=== PATIENT | male | born 1955 | race Two or more races ===

== ENCOUNTER 2023-06-28 00:23 | Emergency (ER) | payer OTHER ==
[~2023-06-28] VITALS: Ht 175.3 cm; Wt 112.9 kg
[2023-06-28] MEDS ORDERED: ATORVASTATIN CA10 MG PO (00:31)
[2023-06-28] MEDS ORDERED: COZAAR25 MG PO (00:31)
[2023-06-28] MEDS ORDERED: PENTOXIFYLLINE (00:32)
[2023-06-28 01:40] LABS: HEMATOCRIT 40.9 % (39.0-48.0); HEMOGLOBIN 13.6 g/dL (13-16.00); MEAN CELL VOLUME 94.5 fL (80.0-100.00); MEAN CORPUSCULAR HEMOGLOBIN 31.5 pg (27.00-32.0); MEAN CORPUSCULAR HGB CONC 33.3 g/dl (32.0-36.0); PLATELET COUNT 225 K/uL (150-450); RED BLOOD COUNT 4.33 M/uL (4.00-6.00); RED CELL DISTRIBUTION WIDTH 13.2 % (11.5-14.5)
[2023-06-28 01:50] LABS: PH,URINE 6.5 (5.0-8.0); URINE APPEARANCE Clear; URINE BILIRRUBIN Negative (NEGATIVE); URINE BLOOD Negative; URINE COLOR Yellow; URINE GLUCOSE Negative (NEGATIVE); URINE LEUKOCYTE Negative; URINE NITRATE Negative; URINE PROTEIN Negative (NEGATIVE); URINE UROBILINOGEN 0.2 E.U./dl
[2023-06-28 01:54] LABS: URINE BACTERIA 6.2 uL (0.0-1933); URINE WBC 1.8 uL (0.0-23.2)
[2023-06-28 02:12] LABS: ALBUMIN 3.7 gm/dL (3.4-5.0); BILIRUBIN TOTAL 0.54 mg/dL (0.3-1.2); CALCIUM 8.9 mg/dL (8.5-10.1); CREATININE SERUM 1.06 mg/dL (0.70-1.30); GFR 69.9; GLOBULINA 3.7 G/DL (2.4-3.5); POTASSIUM 3.67 mEq/L (3.5-5.1); TOTAL PROTEIN 7.4 gm/dL (6.4-8.2)
[2023-06-28] MEDS ORDERED: HYDROCHLOROTHIA25 MG PO (03:59)
== END 2023-06-28 04:03 | disposition home or self-care (01) ==
LOC: ER 00:23
PROVIDERS: General Practice
DX: I10 Essential (primary) hypertension (principal)

== ENCOUNTER 2025-03-01 17:17 | Emergency (ER) | payer OTHER ==
[~2025-03-01] VITALS: Ht 175.3 cm; Wt 112.9 kg
[~2025-03-01 17:17] MED LIST: ATORVASTATIN CA10 MG PO; COZAAR25 MG PO; HYDROCHLOROTHIA25 MG PO; PENTOXIFYLLINE
[2025-03-01] MEDS ORDERED: COZAAR100 MG (17:50)
[2025-03-01] MEDS ORDERED: LIPITOR40 M1 (17:51)
[2025-03-01] MEDS ORDERED: [UNRECOGNIZED DRUG - OTHER] (17:51)
[2025-03-01 19:28] LABS: BASO % 0.4 % (0.1-1.2); EOS # 0.20 (0.04-0.54); EOS % 2.7 % (0.7-7.0); LYMPH # 2.56 (1.18-3.74); LYMPH % 34.3 % (19.3-53.1); MEAN PLATELET VOLUME 9.90 fl (9.4-12.4); MONO # 0.46 (0.24-0.82); MONO % 6.2 % (4.7-12.5); NEUT # 4.21 (1.56-6.13); NEUT % 56.3 % (34.0-71.1); RED CELL DISTRIBUTION WIDTH 12.4 % (11.6-14.4)
[2025-03-01 19:52] LABS: BUN CREA RATIO 21.0 (7.0-25.0); CREATININE SERUM 0.97 mg/dL (0.70-1.30); GFR 76.96; GLUCOSE FASTING 109.0 mg/dL (65-100); OSMOLALITY SERUM 283.0 MOSM/KG (275-295)
== END 2025-03-01 21:52 | disposition home or self-care (01) ==
LOC: ER 17:17
PROVIDERS: General Practice
DX: R60.0 Localized edema (principal); I10 Essential (primary) hypertension